=== PATIENT | female | born 1990 | race Caucasian/White ===

== ENCOUNTER 2017-12-20 19:42 | Outpatient (CLI) | payer MEDICAID, BC ==
[2017-12-20] MEDS: LACTATED RINGER'S 1,000 ML IV ×2 (20:34→21:37)
[2017-12-20] MEDS: TERBUTALINE 1 MG/ML INJ SC ×2 (20:34→21:45)
[2017-12-21 02:42] LABS: ADD UMIC YES; UR ASCORBIC ACID NEGATIVE (NEGATIVE); UR BACTERIA FEW /HPF (NONE SEEN); UR BILIRUBIN (Dip) NEGATIVE (NEGATIVE); UR BLOOD (Dip) NEGATIVE (NEGATIVE); UR CLARITY CLEAR (CLEAR); UR COLOR YELLOW (YELLOW); UR GLUCOSE (Dip) NEGATIVE (NEGATIVE); UR KETONES (Dip) 1+ mg/dL (NEGATIVE); UR LEUKOCYTE ESTERASE (Dip) 1+ Leu/ul (NEGATIVE); UR MUCUS FEW /HPF (NONE SEEN); UR NITRITE (Dip) NEGATIVE (NEGATIVE); UR RBC 2 /HPF (0-5); UR SPECIFIC GRAVITY (Dip) 1.025 (1.003-1.030); UR SQUAMOUS EPITHELIAL CELL FEW /HPF (FEW); UR TOTAL PROTEIN (Dip) 1+ mg/dl (NEGATIVE); UR UROBILINOGEN (Dip) 2+ mg/dL (NEGATIVE); UR WBC 4 /HPF (0-5)
[2017-12-21 03:08] LABS: AMPHETAMINE/METHAMPHETAMINE Negative (NEGATIVE); BARBITURATES Negative (NEGATIVE); BENZODIAZEPINES Negative (NEGATIVE); CANNABINOIDS Positive (NEGATIVE); COCAINE Negative (NEGATIVE); OPIATES Negative (NEGATIVE)
== END 2017-12-20 23:42 | disposition home or self-care (01) ==
LOC: OBT 19:42 → L-D 19:43
DX: O47.03 False labor before 37 completed weeks of gestation, third trimester (principal); O36.5930 Maternal care for other known or suspected poor fetal growth, third trimester, not applicable or unspecified; Z3A.36 36 weeks gestation of pregnancy
CPT/HCPCS: 36415; 76815; 76818; 80307; 81001; 96360; 96361; 96372

== ENCOUNTER 2017-12-22 13:08 | Outpatient (CLI) | payer MEDICAID ==
[2017-12-22] MEDS: LACTATED RINGER'S 1,000 ML IV (15:54)
== END 2017-12-22 17:12 | disposition home or self-care (01) ==
LOC: OBT 13:08 → L-D 13:08 → OBT 17:12
DX: O47.03 False labor before 37 completed weeks of gestation, third trimester (principal); Z3A.36 36 weeks gestation of pregnancy
CPT/HCPCS: 36415; 76818; 96360

== ENCOUNTER 2017-12-24 09:39 | Outpatient (CLI) | payer MEDICAID | END 2017-12-24 11:50 | disposition home or self-care (01) | LOC: OBT 09:39 → L-D 09:39 → OBT 11:50 | DX: O41.93X0 Disorder of amniotic fluid and membranes, unspecified, third trimester, not applicable or unspecified (principal); O34.219 Maternal care for unspecified type scar from previous cesarean delivery; Z3A.36 36 weeks gestation of pregnancy | CPT/HCPCS: 76818 ==

== ENCOUNTER 2018-01-11 17:25 | Inpatient (IN) | payer OTHER, MEDICAID ==
[2018-01-11] MEDS ORDERED: METHYLERGONOVINE 0.2 MG INJ IM (19:00)
[2018-01-11] MEDS ORDERED: MISOPROSTOL 200 MCG TAB PR (19:00)
[2018-01-11] MEDS ORDERED: CARBOPROST 250 MCG INJ IM (19:00)
[2018-01-11] MEDS ORDERED: OXYTOCIN 30 UNITS/LR 500 ML IV ×2 (19:00→21:32)
[2018-01-11 19:16] LABS: ADD MAN DIFF? NO
[2018-01-11 19:18] LABS: BASOPHIL # 0.1 10^3/ul (0.0-0.1); BASOPHILS % 0.5 % (0.0-2.0); EOSINOPHILS # 0.1 10^3/ul (0.0-0.5); EOSINOPHILS % 1.2 % (0.0-7.0); HEMATOCRIT 28.7 % (37.0-47.0); LYMPHOCYTES % 32.4 % (15.0-51.0); MEAN CORPUSCULAR HEMOGLOBIN 23.8 pg (29.0-33.0); MEAN CORPUSCULAR HGB CONC 31.4 g/dl (32.0-37.0); MEAN CORPUSCULAR VOLUME 75.9 fl (82.0-101.0); MONOCYTE # 0.4 10^3/ul (0.3-0.9); MONOCYTES % 4.5 % (0.0-11.0); NEUTROPHIL # 5.7 10^3/ul (1.6-7.5); PLATELET COUNT 256 10^3/UL (140-415); RED BLOOD COUNT 3.78 10^6/ul (4.20-5.40); RED CELL DISTRIBUTION WIDTH 16.2 % (11.5-14.5)
[2018-01-11 19:18] LABS: WHITE BLOOD COUNT 9.3 10^3/ul (4.8-10.8)
[2018-01-11 19:37] LABS: INR 0.93; PROTIME 12.5 Sec (11.9-14.9)
[2018-01-11 19:38] LABS: PARTIAL THROMBOPLASTIN TIME 24.7 Sec (25.0-35.0)
[2018-01-11] MEDS: LACTATED RINGER'S 1,000 ML IV ×2 (19:45→21:22)
[2018-01-11] MEDS ORDERED: EPHEDrine SULFATE 50 MG/5 ML SYG (21:32)
[2018-01-11] MEDS ORDERED: OXYTOCIN 10 UNIT INJ ×2 (21:33→21:50)
[2018-01-11] MEDS ORDERED: morphine SULFATE/PF (10 MG/10 ML) INJ (21:33)
[2018-01-11] MEDS ORDERED: METOCLOPRAMIDE 10 MG INJ (21:33)
[2018-01-11] MEDS ORDERED: ONDANSETRON 4 MG INJ (21:33)
[2018-01-11] MEDS: morphine SULFATE/PF (10 MG/10 ML) INJ SPINAL (21:40)
[2018-01-11] MEDS: CEFAZOLIN 2 GM/50 ML (PMX) 50 ML IV (22:18)
[2018-01-11] MEDS ORDERED: MIDAZOLAM 1 MG/ML 2 ML INJ (22:20)
[2018-01-11] MEDS: OXYTOCIN 30 UNITS/LR 500 ML IV (23:05)
[2018-01-11] MEDS ORDERED: NALOXONE (0.4 MG/ML) INJ IV (23:30)
[2018-01-11] MEDS ORDERED: EPHEDrine SULFATE 50 MG/5 ML SYG IV (23:30)
[2018-01-11] MEDS ORDERED: morphine 2 MG INJ IV ×2 (23:30)
[2018-01-11] MEDS ORDERED: ONDANSETRON 4 MG INJ IV (23:30)
[2018-01-11] MEDS: DIPHENHYDRAMINE 50 MG INJ IV (23:54)
[2018-01-12] MEDS: KETOROLAC 30 MG INJ IV ×2 (00:05→19:54)
[2018-01-12] MEDS: LACTATED RINGER'S 1,000 ML IV ×2 (01:22→11:26)
[2018-01-12] MEDS: OXYTOCIN 30 UNITS/LR 500 ML IV (01:29)
[2018-01-12] MEDS ORDERED: OXYCODONE/ACETAMINOPHEN (5/325) TAB PO (01:30)
[2018-01-12] MEDS ORDERED: CARBOPROST 250 MCG INJ IM (01:30)
[2018-01-12] MEDS ORDERED: METHYLERGONOVINE 0.2 MG INJ IM (01:30)
[2018-01-12] MEDS ORDERED: OXYTOCIN 30 UNITS/LR 500 ML IV (01:30)
[2018-01-12] MEDS ORDERED: MISOPROSTOL 200 MCG TAB PR (01:30)
[2018-01-12] MEDS: DEXAMETHASONE 4 MG/ML 1 ML INJ IV (05:59)
[2018-01-12 08:11] LABS: ADD MAN DIFF? NO
[2018-01-12 08:15] LABS: BASOPHIL # 0.1 10^3/ul (0.0-0.1); BASOPHILS % 0.3 % (0.0-2.0); EOSINOPHILS % 0.1 % (0.0-7.0); HEMATOCRIT 26.9 % (37.0-47.0); HEMOGLOBIN 8.2 g/dl (12.0-16.0); LYMPHOCYTES # 1.9 10^3/ul (0.8-2.9); LYMPHOCYTES % 11.6 % (15.0-51.0); MEAN CORPUSCULAR HGB CONC 30.5 g/dl (32.0-37.0); MEAN CORPUSCULAR VOLUME 75.6 fl (82.0-101.0); MEAN PLATELET VOLUME 9.9 fl (7.4-10.4); MONOCYTE # 0.4 10^3/ul (0.3-0.9); MONOCYTES % 2.2 % (0.0-11.0); NEUTROPHIL # 14.1 10^3/ul (1.6-7.5); NEUTROPHILS % 85.2 % (39.0-77.0); PLATELET COUNT 211 10^3/UL (140-415); RED BLOOD COUNT 3.56 10^6/ul (4.20-5.40); RED CELL DISTRIBUTION WIDTH 16.5 % (11.5-14.5)
[2018-01-12 08:15] LABS: WHITE BLOOD COUNT 16.5 10^3/ul (4.8-10.8)
[2018-01-12] MEDS: LANOLIN 7 GM TUBE TOP (13:53)
[2018-01-12] MEDS: FERROUS SULFATE (EC) 325 MG TAB PO ×2 (13:53→22:35)
[2018-01-12 14:54] LABS: RAPID PLASMA REAGIN NONREACTIVE (NR)
[2018-01-12] MEDS: DIPHENHYDRAMINE 50 MG INJ IV (19:51)
[2018-01-12] MEDS: IBUPROFEN 800 MG TAB PO (22:00)
[2018-01-12] MEDS: SENNA/DOCUSATE NA (8.6MG/50MG) TAB PO (22:35)
[2018-01-12] MEDS: OXYCODONE/ACETAMINOPHEN (5/325) TAB PO (23:58)
[2018-01-13] MEDS: LACTATED RINGER'S 1,000 ML IV ×2 (04:45)
[2018-01-13] MEDS: IBUPROFEN 800 MG TAB PO ×3 (05:43→21:03)
[2018-01-13] MEDS: FERROUS SULFATE (EC) 325 MG TAB PO ×3 (08:53→21:02)
[2018-01-13] MEDS: SENNA/DOCUSATE NA (8.6MG/50MG) TAB PO ×2 (08:53→21:02)
[2018-01-13] MEDS: OXYCODONE/ACETAMINOPHEN (5/325) TAB PO (10:21)
[2018-01-13] MEDS: DIPHTH/TET/ACEL PERTUSS (ADULT) 0.5 ML VIAL IM* (14:21)
[2018-01-13] MEDS: MAGNESIUM HYDROXIDE 30ML CUP PO (21:02)
[2018-01-14] MEDS: LACTATED RINGER'S 1,000 ML IV ×2 (00:02→04:41)
[2018-01-14] MEDS: IBUPROFEN 800 MG TAB PO ×2 (05:45→13:40)
[2018-01-14] MEDS: FERROUS SULFATE (EC) 325 MG TAB PO ×2 (08:59→12:33)
[2018-01-14] MEDS: SENNA/DOCUSATE NA (8.6MG/50MG) TAB PO (08:59)
[2018-01-14] MEDS: INFLUENZA VIRUS VACCINE 0.5 ML (DISPENSING) IM* (13:05)
== END 2018-01-14 15:45 | disposition home or self-care (01) | DRG 766 ==
LOC: OBT 17:25 → L-D 01-12 01:20 → PP1 01-12 13:15 → OBT 17:51 → L-D 17:51
PROVIDERS: Obstetrics & Gynecology
PROC: 10D00Z1 Extraction of Products of Conception, Low, Open Approach (ICD-10-PCS; principal; 2018-01-11 22:00)
PROC: 0UL70ZZ Occlusion of Bilateral Fallopian Tubes, Open Approach (ICD-10-PCS; 2018-01-11 22:00)
PROC: 3E033VJ Introduction of Other Hormone into Peripheral Vein, Percutaneous Approach (ICD-10-PCS; 2018-01-11 22:00)
DX: O34.211 Maternal care for low transverse scar from previous cesarean delivery (principal); Z30.2 Encounter for sterilization; Z37.0 Single live birth; Z3A.38 38 weeks gestation of pregnancy
CPT/HCPCS: 85025; 85610; 85730; 86592; 86850; 86900; 86901; 88302; 90686; 99464